=== PATIENT | male | born 1960 | race African-American/Black ===

== ENCOUNTER 2021-07-08 13:21 | Inpatient (IN) | payer MEDICARE, MEDICAID ==
[2021-07-08 15:24] LABS: #Eosinphils 0.5 thou/uL (0.0-0.7); #Lymphocytes 1.8 thou/uL (1.20-3.40); #Monocytes 1.1 thou/uL (0.11-0.59); #Neutrophils 7.2 thou/uL (1.40-6.50); %Basophils 0.4 % (0.0-1.0); %Eosinophils 4.3 % (0.0-10.0); %Lymphocytes 17.1 % (21.0-51.0); %Monocytes 10.2 % (0.0-10.0); Mean Corpuscular HGB CONC 33.4 g/dL (32.0-36.0); Mean Corpuscular Hemoglobin 31.7 pg (27.0-31.0); Mean Corpuscular Volume 94.9 fL (78.0-98.0); Mean Platelet Volume 7.6 fL (7.4-10.4); Platelet Count 242 thou/uL (130-400); RBC Distribution Width 14.2 % (11.5-14.5); White Blood Cell (WBC) Count 10.5 thou/uL (4.8-10.8)
[2021-07-08 15:46] LABS: ALT (SGPT) 9 U/L (8-55); AST (SGOT) 13 U/L (5-34); Albumin 3.1 g/dL (3.5-5.0); Alkaline Phosphatase 62 U/L (40-110); Anion Gap 12 mmol/L (10-20); BUN (Urea Nitrogen) 11 mg/dL (8.4-25.7); Bilirubin, Total 0.4 mg/dL (0.2-1.2); Calc. Creatinine Clearance 0 mL/min (70-130); Calcium 8.9 mg/dL (7.8-10.44); Carbon Dioxide 27 mmol/L (22-29); Chloride 104 mmol/L (98-107); Globulin 3.4 g/dL (2.4-3.5); Potassium 4.2 mmol/L (3.5-5.1); Protein, Total 6.5 g/dL (6.0-8.3); Sodium 139 mmol/L (136-145)
[2021-07-08 15:51] LABS: Glucose 53 mg/dL (70-105)
[2021-07-08] MEDS ORDERED: Cefepime 2 GM VIAL ONE (16:06)
[2021-07-08] MEDS ORDERED: Vancomycin 1 GM/200 ML BAG ONE (16:52)
[2021-07-08] MEDS ORDERED: Acetaminophen 650 MG Suppository PR PRN (17:48)
[2021-07-08] MEDS ORDERED: Ondansetron PF 4 MG/2 ML Vial IVP PRN (17:48)
[2021-07-08] MEDS ORDERED: Ondansetron ODT 4 MG TAB PO PRN (17:48)
[2021-07-08] MEDS ORDERED: Acetaminophen 325 MG TAB PO PRN (17:48)
[2021-07-08] MEDS ORDERED: metroNIDAZOLE 500 MG in Premix Bag 1 BAG IVPB SCH (18:00)
[2021-07-08] MEDS ORDERED: Vancomycin 1 GM in Premix Bag 1 BAG IVPB SCH ×2 (18:00→18:30)
[2021-07-08] MEDS ORDERED: Piperacillin/Tazobactam 3.375 GM in Sodium Chloride 0.9% 100 ML IVPB SCH ×2 (18:15→22:00)
[2021-07-08 18:16] VITALS: BMI 27.8
[2021-07-08 18:37] LABS: SARS-CoV-2 NAA Rapid Test Not Detected (NotDetected)
[2021-07-08] MEDS ORDERED: Cefepime 2 GM in Sodium Chloride 0.9% 100 ML IVPB SCH (21:00)
[2021-07-08] MEDS: VANCOMYCIN 2 GRAM/400 ML BAG 2 GM in Premix Bag 1 BAG IVPB SCH (21:49)
[2021-07-08] MEDS: Atorvastatin Calcium 40 MG TAB PO SCH (21:59)
[2021-07-08] MEDS: Carvedilol 6.25 MG TAB PO SCH (21:59)
[2021-07-09] MEDS: VANCOMYCIN 2 GRAM/400 ML BAG 2 GM in Premix Bag 1 BAG IVPB SCH ×2 (05:16→18:10)
[2021-07-09 07:53] LABS: #Eosinphils 0.4 thou/uL (0.0-0.7); #Lymphocytes 1.6 thou/uL (1.20-3.40); #Neutrophils 6.1 thou/uL (1.40-6.50); %Basophils 0.4 % (0.0-1.0); %Eosinophils 4.6 % (0.0-10.0); %Lymphocytes 17.6 % (21.0-51.0); %Monocytes 10.4 % (0.0-10.0); %Neutrophils 66.9 % (42.0-75.0); Mean Corpuscular Volume 93.9 fL (78.0-98.0); Platelet Count 242 thou/uL (130-400); RBC Distribution Width 14.2 % (11.5-14.5); Red Blood Cell (RBC) Count 4.19 mill/uL (4.70-6.10); White Blood Cell (WBC) Count 9.1 thou/uL (4.8-10.8)
[2021-07-09 08:03] LABS: Anion Gap 12 mmol/L (10-20); BUN (Urea Nitrogen) 11 mg/dL (8.4-25.7); Calc. Creatinine Clearance 129 mL/min (70-130); Calcium 8.7 mg/dL (7.8-10.44); Carbon Dioxide 23 mmol/L (22-29); Chloride 106 mmol/L (98-107); Glucose 131 mg/dL (70-105); Potassium 3.9 mmol/L (3.5-5.1); Sodium 137 mmol/L (136-145)
[2021-07-09] MEDS: Piperacillin/Tazobactam 3.375 GM in Sodium Chloride 0.9% 100 ML IVPB SCH ×3 (08:25→23:09)
[2021-07-09] MEDS: Citalopram 20 MG TAB PO SCH (08:33)
[2021-07-09] MEDS: Carvedilol 6.25 MG TAB PO SCH ×2 (08:34→20:35)
[2021-07-09] MEDS: Aspirin 81 mg Enteric Coated Tablet PO SCH (08:34)
[2021-07-09] MEDS ORDERED: Fentanyl 100 MCG/2 ML VIAL ONE (15:17)
[2021-07-09] MEDS ORDERED: Ketamine 50 MG/ML (10ML VIAL) ONE (15:43)
[2021-07-09] MEDS ORDERED: Bupivacaine PF 0.5% 30 ML VIAL ONE (15:43)
[2021-07-09] MEDS ORDERED: Midazolam HCl 2 mg/2 ml Vial ONE (15:44)
[2021-07-09] MEDS ORDERED: Glycopyrrolate 0.2 MG/ML 5 ML SYRINGE ONE (16:34)
[2021-07-09] MEDS ORDERED: Promethazine HCl 25 MG/ML VIAL IVPB PRN (17:11)
[2021-07-09] MEDS ORDERED: Promethazine HCl 25 MG/ML VIAL IM PRN (17:11)
[2021-07-09] MEDS ORDERED: Ondansetron HCl/PF 4 MG/2 ML Vial IVP PRN (17:11)
[2021-07-09] MEDS ORDERED: Acetaminophen 500 MG TAB PO PRN (17:43)
[2021-07-09] MEDS ORDERED: Acetaminophen 500 MG TAB PO SCH (17:45)
[2021-07-09] MEDS ORDERED: Albuterol Sulfate 1.25 MG/3 ML NEB NEB PRN (17:47)
[2021-07-09] MEDS: Atorvastatin Calcium 40 MG TAB PO SCH (20:35)
[2021-07-09] MEDS: traMADol HCl 50 MG TAB PO PRN (20:36)
[2021-07-10] MEDS: traMADol HCl 50 MG TAB PO PRN ×2 (02:39→10:36)
[2021-07-10] MEDS: VANCOMYCIN 2 GRAM/400 ML BAG 2 GM in Premix Bag 1 BAG IVPB SCH ×2 (05:09→06:38)
[2021-07-10 06:12] LABS: #Eosinphils 0.3 thou/uL (0.0-0.7); #Lymphocytes 1.3 thou/uL (1.20-3.40); #Monocytes 0.7 thou/uL (0.11-0.59); #Neutrophils 6.5 thou/uL (1.40-6.50); %Basophils 0.5 % (0.0-1.0); %Eosinophils 3.4 % (0.0-10.0); %Lymphocytes 14.6 % (21.0-51.0); %Neutrophils 73.6 % (42.0-75.0); Hemoglobin 12.4 g/dL (14.0-18.0); Mean Corpuscular HGB CONC 32.7 g/dL (32.0-36.0); Mean Corpuscular Hemoglobin 30.8 pg (27.0-31.0); Mean Platelet Volume 7.6 fL (7.4-10.4); Platelet Count 241 thou/uL (130-400); RBC Distribution Width 14.1 % (11.5-14.5); Red Blood Cell (RBC) Count 4.02 mill/uL (4.70-6.10); White Blood Cell (WBC) Count 8.9 thou/uL (4.8-10.8)
[2021-07-10 06:19] LABS: Hemoglobin A1c 6.5 % (4.0-6.0)
[2021-07-10 06:30] LABS: Vancomycin, Trough 17.3 ug/mL
[2021-07-10 06:31] LABS: Anion Gap 12 mmol/L (10-20); BUN (Urea Nitrogen) 9 mg/dL (8.4-25.7); Calc. Creatinine Clearance 174 mL/min (70-130); Calcium 8.7 mg/dL (7.8-10.44); Carbon Dioxide 21 mmol/L (22-29); Chloride 106 mmol/L (98-107); Glucose 150 mg/dL (70-105); Potassium 3.9 mmol/L (3.5-5.1); Sodium 135 mmol/L (136-145)
[2021-07-10] MEDS ORDERED: glipiZIDE 10 MG TAB PO SCH (07:30)
[2021-07-10] MEDS: Aspirin 81 mg Enteric Coated Tablet PO SCH (08:47)
[2021-07-10] MEDS: Carvedilol 6.25 MG TAB PO SCH (08:47)
[2021-07-10] MEDS: Citalopram 20 MG TAB PO SCH (08:48)
[2021-07-10] MEDS: Piperacillin/Tazobactam 3.375 GM in Sodium Chloride 0.9% 100 ML IVPB SCH ×2 (08:48→16:00)
[2021-07-10] MEDS ORDERED: Amlodipine 10 MG TAB PO SCH (09:00)
[2021-07-10] MEDS ORDERED: Clopidogrel Bisulfate 75 MG TAB PO SCH (09:00)
[2021-07-10] MEDS ORDERED: Polyethylene Glycol 3350 17 GM Packet PO SCH (09:00)
[2021-07-10 16:54] VITALS: BP 108/70; TEMP 98
== END 2021-07-10 17:01 | disposition home health service (06) | DRG 617 ==
LOC: ERS 13:21 → ERHOLD 16:56 → T4-A 21:00
PROVIDERS: ADMIT Internal Medicine; ATTEND Internal Medicine
PROC: 0Y6M0Z9 Detachment at Right Foot, Partial 1st Ray, Open Approach (ICD-10-PCS; principal; 2021-07-09)
PROC: 0Y6M0ZB Detachment at Right Foot, Partial 2nd Ray, Open Approach (ICD-10-PCS; 2021-07-09)
DX: E11.69 Type 2 diabetes mellitus with other specified complication (principal); E11.52 Type 2 diabetes mellitus with diabetic peripheral angiopathy with gangrene; M86.8X7 Other osteomyelitis, ankle and foot; I50.22 Chronic systolic (congestive) heart failure; Z20.822 Contact with and (suspected) exposure to COVID-19; I25.10 Atherosclerotic heart disease of native coronary artery without angina pectoris; I11.0 Hypertensive heart disease with heart failure; E78.5 Hyperlipidemia, unspecified; I10 Essential (primary) hypertension; F12.10 Cannabis abuse, uncomplicated; F17.210 Nicotine dependence, cigarettes, uncomplicated; E11.621 Type 2 diabetes mellitus with foot ulcer; L97.519 Non-pressure chronic ulcer of other part of right foot with unspecified severity; I25.5 Ischemic cardiomyopathy; F10.10 Alcohol abuse, uncomplicated; Z79.899 Other long term (current) drug therapy; Z95.1 Presence of aortocoronary bypass graft; I25.2 Old myocardial infarction; Z79.82 Long term (current) use of aspirin; Z79.02 Long term (current) use of antithrombotics/antiplatelets; Z79.4 Long term (current) use of insulin; Z71.6 Tobacco abuse counseling; Z95.5 Presence of coronary angioplasty implant and graft; Z95.810 Presence of automatic (implantable) cardiac defibrillator; Z91.040 Latex allergy status; Z82.49 Family history of ischemic heart disease and other diseases of the circulatory system
CPT/HCPCS: 36415; 36416; 80048; 80053; 80202; 83036; 85025; 85652; 86140; 87040; 87070; 87077; 87205; 88305; 88311; 96365; 96366; 96367; C1713; J0692; J2250; J2543; J3010; J3370; J3490; Q0162; S0020; U0002

== ENCOUNTER 2021-08-04 09:09 | Emergency (ER) | payer MEDICARE, MEDICAID | END 2021-08-04 11:54 | disposition left against medical advice (07) | LOC: ERS 09:09 | DX: Z53.21 Procedure and treatment not carried out due to patient leaving prior to being seen by health care provider (principal) ==

== ENCOUNTER 2021-08-12 12:17 | Outpatient (CLI) | payer MEDICARE, MEDICAID ==
[2021-08-12 13:14] LABS: #Eosinphils 0.1 10x3/uL (0.0-0.5); #Neutrophils 7.5 10x3/uL (1.5-8.4); %Basophils 0.3 % (0.0-2.0); %Eosinophils 0.8 % (0.0-6.0); %Lymphocytes 9.4 % (18.0-47.0); %Monocytes 10.8 % (0.0-10.0); %Neutrophils 78.5 % (40.0-75.0); Hemoglobin 10.9 g/dL (13.5-17.5); Mean Corpuscular HGB CONC 32.2 g/dL (32.0-36.0); Mean Corpuscular Hemoglobin 28.7 pg (27.0-33.0); Mean Corpuscular Volume 88.9 fl (81.2-95.1); Mean Platelet Volume 10.9 fl (7.4-10.4); Platelet Count 241 10x3/uL (150-450); RBC Distribution Width 15.1 % (11.5-14.5); White Blood Cell (WBC) Count 9.6 10x3/uL (3.5-10.5)
[2021-08-12 13:36] LABS: Anion Gap 15 mmol/L (10-20); BUN (Urea Nitrogen) 17 mg/dL (8.4-25.7); Calc. Creatinine Clearance 0 mL/min (70-130); Calcium 8.1 mg/dL (7.8-10.44); Carbon Dioxide 25 mmol/L (22-29); Chloride 99 mmol/L (98-107); Glucose 365 mg/dL (70-105); Potassium 4.2 mmol/L (3.5-5.1); Sodium 135 mmol/L (136-145)
[2021-08-13 14:36] LABS: SARS-CoV-2 PCR by NAA Not Detected (NotDetected)
== END 2021-08-12 12:18 | disposition home or self-care (01) ==
LOC: LABBT 12:17
PROVIDERS: ATTEND Specialist
DX: Z01.812 Encounter for preprocedural laboratory examination (principal); Z20.822 Contact with and (suspected) exposure to COVID-19
CPT/HCPCS: 80048; 85025; U0003; U0005

== ENCOUNTER 2021-08-14 08:36 | Inpatient (IN) | payer MEDICARE, MEDICAID ==
[2021-08-06 10:34] VITALS: BMI 26.1
[2021-08-14] MEDS ORDERED: ceFAZolin 2 GM/DEX 5% 100 ML BAG ONE (09:15)
[2021-08-14] MEDS ORDERED: Gabapentin 300 MG CAP ONE (09:15)
[2021-08-14] MEDS ORDERED: Acetaminophen 500 MG TAB ONE (09:15)
[2021-08-14] MEDS ORDERED: Ketorolac Tromethamine 30 MG/ML VIAL ONE (09:15)
[2021-08-14] MEDS ORDERED: Midazolam HCl 2 mg/2 ml Vial ONE (10:14)
[2021-08-14] MEDS ORDERED: HYDROmorphone 0.5 MG/0.5 ML SYRINGE ONE (10:14)
[2021-08-14] MEDS ORDERED: Fentanyl 100 MCG/2 ML VIAL ONE ×2 (10:14→12:31)
[2021-08-14] MEDS ORDERED: Lidocaine 1% PF 5 ML VIAL ONE (10:25)
[2021-08-14] MEDS ORDERED: ePHEDrine 50 MG/ML VIAL ONE (10:25)
[2021-08-14] MEDS ORDERED: Ondansetron PF 4 MG/2 ML Vial ONE (10:25)
[2021-08-14] MEDS ORDERED: PROPOFOL 200 MG/20 ML VIAL ONE (10:25)
[2021-08-14] MEDS ORDERED: Dexamethasone 20 MG/5 ML VIAL ONE (10:25)
[2021-08-14] MEDS ORDERED: hydrALAZINE 20 MG/ML VIAL SLOW IVP PRN (12:02)
[2021-08-14] MEDS ORDERED: HYDROcodone/Acetaminophen 10/325 mg Tablet PO PRN ×2 (12:02)
[2021-08-14] MEDS ORDERED: Morphine 4 MG/ML VIAL SLOW IVP PRN (12:02)
[2021-08-14] MEDS ORDERED: Dextrose 5% in Water 1,000 ML IV PRN (12:02)
[2021-08-14] MEDS ORDERED: Morphine 2 MG/ML VIAL SLOW IVP PRN (12:02)
[2021-08-14] MEDS ORDERED: Dextrose 50% Abboject 50 ML SYRINGE SLOW IVP PRN (12:02)
[2021-08-14] MEDS ORDERED: Loratadine 10 MG TAB PO PRN (12:13)
[2021-08-14] MEDS ORDERED: Albuterol Sulfate 1.25 MG/3 ML NEB NEB PRN (12:13)
[2021-08-14] MEDS ORDERED: fentaNYL Citrate/PF 2,000 MCG in Sodium Chloride 0.9% 60 ML IV PRN (13:55)
[2021-08-14] MEDS ORDERED: diphenhydrAMINE 50 MG/ML VIAL IVP PRN (13:55)
[2021-08-14] MEDS ORDERED: diphenhydrAMINE 25 MG CAP PO PRN (13:55)
[2021-08-14] MEDS ORDERED: Promethazine HCl 25 MG/ML VIAL IM PRN (13:55)
[2021-08-14] MEDS ORDERED: diphenhydrAMINE 50 MG/ML VIAL IM PRN (13:55)
[2021-08-14] MEDS ORDERED: Ondansetron PF 4 MG/2 ML Vial IVP PRN (13:55)
[2021-08-14] MEDS ORDERED: Naloxone HCl 0.4 mg/ml Vial IV PRN (13:55)
[2021-08-14] MEDS ORDERED: Zolpidem Tartrate 5 MG TAB PO PRN (13:55)
[2021-08-14] MEDS ORDERED: PCA Communication Order-Pharmacy FS SCH (14:00)
[2021-08-14] MEDS ORDERED: Furosemide 20 MG TAB PO SCH (15:00)
[2021-08-14] MEDS: Pregabalin 50 MG CAP PO SCH ×2 (16:59→21:48)
[2021-08-14] MEDS: Gabapentin 300 MG CAP PO SCH ×2 (17:00→21:51)
[2021-08-14] MEDS: HumaLOG 300 UNITS/3 ML VIAL SC PRN ×2 (18:18→21:53)
[2021-08-14] MEDS: Famotidine 20 MG TAB PO SCH (21:50)
[2021-08-14] MEDS: Amlodipine 10 MG TAB PO SCH (21:50)
[2021-08-14] MEDS: Enoxaparin Sodium 40 MG/0.4 ML SYRINGE SC SCH (21:51)
[2021-08-14] MEDS: Atorvastatin Calcium 40 MG TAB PO SCH (21:51)
[2021-08-14] MEDS: HumaLOG 300 UNITS/3 ML VIAL SC SCH (21:52)
[2021-08-14] MEDS: Lantus 1000 UNITS/10 ML VIAL SC SCH (21:52)
[2021-08-15] MEDS: HumaLOG 300 UNITS/3 ML VIAL SC PRN ×4 (04:13→22:46)
[2021-08-15 05:41] LABS: #Lymphocytes 0.9 thou/uL (1.20-3.40); #Monocytes 0.7 thou/uL (0.11-0.59); #Neutrophils 8.7 thou/uL (1.40-6.50); %Basophils 0.1 % (0.0-1.0); %Lymphocytes 8.9 % (21.0-51.0); %Monocytes 6.5 % (0.0-10.0); %Neutrophils 84.4 % (42.0-75.0); Hemoglobin 9.1 g/dL (14.0-18.0); Mean Corpuscular HGB CONC 34.5 g/dL (32.0-36.0); Mean Corpuscular Hemoglobin 31.1 pg (27.0-31.0); Mean Corpuscular Volume 90.3 fL (78.0-98.0); Mean Platelet Volume 8.2 fL (7.4-10.4); Platelet Count 191 thou/uL (130-400); RBC Distribution Width 14.5 % (11.5-14.5); Red Blood Cell (RBC) Count 2.92 mill/uL (4.70-6.10); White Blood Cell (WBC) Count 10.3 thou/uL (4.8-10.8)
[2021-08-15 05:56] LABS: Hemoglobin A1c 7.9 % (4.0-6.0)
[2021-08-15 06:04] LABS: Anion Gap 12 mmol/L (10-20); BUN (Urea Nitrogen) 26 mg/dL (8.4-25.7); Calc. Creatinine Clearance 98 mL/min (70-130); Calcium 8.2 mg/dL (7.8-10.44); Carbon Dioxide 25 mmol/L (22-29); Chloride 96 mmol/L (98-107); Glucose 458 mg/dL (70-105); Magnesium 1.8 mg/dL (1.6-2.6); Potassium 4.3 mmol/L (3.5-5.1); Sodium 129 mmol/L (136-145)
[2021-08-15] MEDS: Pregabalin 50 MG CAP PO SCH ×3 (08:15→22:43)
[2021-08-15] MEDS: Gabapentin 300 MG CAP PO SCH ×3 (08:15→22:44)
[2021-08-15] MEDS: Aspirin 81 mg Enteric Coated Tablet PO SCH (08:15)
[2021-08-15] MEDS: Famotidine 20 MG TAB PO SCH ×2 (08:15→22:43)
[2021-08-15] MEDS: HumaLOG 300 UNITS/3 ML VIAL SC SCH ×2 (08:18→22:46)
[2021-08-15] MEDS: Lantus 1000 UNITS/10 ML VIAL SC SCH ×2 (08:19→22:47)
[2021-08-15] MEDS ORDERED: glipiZIDE 10 MG TAB PO SCH (09:00)
[2021-08-15] MEDS ORDERED: FLU VACC QS2021-22(6MOS UP)/PF 60 MCG/0.5 ML SYRINGE IM ONE (09:00)
[2021-08-15] MEDS: HYDROcodone/Acetaminophen 10/325 mg Tablet PO PRN (19:51)
[2021-08-15] MEDS ORDERED: glipiZIDE 5 MG TAB PO SCH (21:00)
[2021-08-15] MEDS: Atorvastatin Calcium 40 MG TAB PO SCH (22:42)
[2021-08-15] MEDS: glipiZIDE 10 MG TAB PO SCH (22:43)
[2021-08-15] MEDS: Amlodipine 10 MG TAB PO SCH (22:45)
[2021-08-15] MEDS: Enoxaparin Sodium 40 MG/0.4 ML SYRINGE SC SCH (22:45)
[2021-08-16] MEDS: HYDROcodone/Acetaminophen 10/325 mg Tablet PO PRN ×2 (01:20→15:23)
[2021-08-16 01:35] LABS: Magnesium 1.8 mg/dL (1.6-2.6)
[2021-08-16] MEDS: HumaLOG 300 UNITS/3 ML VIAL SC PRN (06:38)
[2021-08-16 07:14] LABS: Phosphorus 3.1 mg/dL (2.3-4.7)
[2021-08-16 08:02] LABS: Hemoglobin 8.2 g/dL (14.0-18.0); Mean Corpuscular HGB CONC 32.5 g/dL (32.0-36.0); Mean Corpuscular Hemoglobin 29.8 pg (27.0-31.0); Mean Corpuscular Volume 91.7 fL (78.0-98.0); Mean Platelet Volume 8.2 fL (7.4-10.4); Platelet Count 203 thou/uL (130-400); RBC Distribution Width 14.6 % (11.5-14.5); Red Blood Cell (RBC) Count 2.74 mill/uL (4.70-6.10); White Blood Cell (WBC) Count 9.5 thou/uL (4.8-10.8)
[2021-08-16] MEDS: Pregabalin 50 MG CAP PO SCH ×3 (09:14→20:05)
[2021-08-16] MEDS: Famotidine 20 MG TAB PO SCH ×2 (09:16→20:02)
[2021-08-16] MEDS: Gabapentin 300 MG CAP PO SCH ×3 (09:16→20:03)
[2021-08-16] MEDS: Aspirin 81 mg Enteric Coated Tablet PO SCH (09:16)
[2021-08-16] MEDS: glipiZIDE 10 MG TAB PO SCH ×2 (09:16→20:04)
[2021-08-16] MEDS: Lantus 1000 UNITS/10 ML VIAL SC SCH ×2 (09:17→20:06)
[2021-08-16] MEDS: HumaLOG 300 UNITS/3 ML VIAL SC SCH ×2 (09:21→20:05)
[2021-08-16 10:39] LABS: Anisocytosis SLIGHT = 6-15 cells (100X) (0-5/hpf); Band 4 % (5-11); Burr Cells SLIGHT = 2-5 cells (100X) (0-1/hpf); Eosinophils 2 % (0-10); Hypochromia SLIGHT = 6-15 cells (100X) (0-5/hpf); Lymphocytes 10 % (21-51); MDiff Complete? YES; Monocytes 6 % (0-10); Neutrophil 78 % (42-75); Platelet Morphology Comment Appears Adequate
[2021-08-16] MEDS: Amlodipine 10 MG TAB PO SCH (20:02)
[2021-08-16] MEDS: Atorvastatin Calcium 40 MG TAB PO SCH (20:03)
[2021-08-16] MEDS: Enoxaparin Sodium 40 MG/0.4 ML SYRINGE SC SCH (20:04)
[2021-08-17] MEDS: HYDROcodone/Acetaminophen 10/325 mg Tablet PO PRN ×3 (03:45→16:19)
[2021-08-17 05:37] LABS: Anion Gap 11 mmol/L (10-20); BUN (Urea Nitrogen) 11 mg/dL (8.4-25.7); Calc. Creatinine Clearance 165 mL/min (70-130); Calcium 8.1 mg/dL (7.8-10.44); Carbon Dioxide 28 mmol/L (22-29); Chloride 102 mmol/L (98-107); Glucose 119 mg/dL (70-105); Potassium 4.1 mmol/L (3.5-5.1); Sodium 137 mmol/L (136-145)
[2021-08-17 05:46] LABS: #Eosinphils 0.1 thou/uL (0.0-0.7); #Lymphocytes 2.6 thou/uL (1.20-3.40); #Monocytes 0.8 thou/uL (0.11-0.59); #Neutrophils 4.4 thou/uL (1.40-6.50); Band 1 % (5-11); Hemoglobin 8.6 g/dL (14.0-18.0); Lymphocytes 40 % (21-51); MDiff Complete? YES; Mean Corpuscular HGB CONC 33.8 g/dL (32.0-36.0); Mean Corpuscular Hemoglobin 30.9 pg (27.0-31.0); Mean Corpuscular Volume 91.3 fL (78.0-98.0); Mean Platelet Volume 8.5 fL (7.4-10.4); Monocytes 3 % (0-10); Neutrophil 55 % (42-75); Platelet Count 225 thou/uL (130-400); RBC Distribution Width 14.6 % (11.5-14.5); Red Blood Cell (RBC) Count 2.78 mill/uL (4.70-6.10); White Blood Cell (WBC) Count 7.8 thou/uL (4.8-10.8)
[2021-08-17 05:47] LABS: Eosinophils 1 % (0-10); Hypochromia SLIGHT = 6-15 cells (100X) (0-5/hpf); Platelet Morphology Comment Appears Adequate
[2021-08-17 08:05] VITALS: TEMP 98.3
[2021-08-17] MEDS: Pregabalin 50 MG CAP PO SCH ×2 (08:58→16:12)
[2021-08-17] MEDS: Aspirin 81 mg Enteric Coated Tablet PO SCH (08:58)
[2021-08-17] MEDS: glipiZIDE 10 MG TAB PO SCH (08:59)
[2021-08-17] MEDS: Gabapentin 300 MG CAP PO SCH ×2 (08:59→16:12)
[2021-08-17] MEDS: Famotidine 20 MG TAB PO SCH (08:59)
[2021-08-17] MEDS: HumaLOG 300 UNITS/3 ML VIAL SC SCH (09:01)
[2021-08-17] MEDS: Lantus 1000 UNITS/10 ML VIAL SC SCH (09:01)
[2021-08-17 16:26] VITALS: BP 106/68
== END 2021-08-17 18:35 | disposition home health service (06) | DRG 240 ==
LOC: SDC 08:36 → SURG A 12:02
PROVIDERS: ADMIT Specialist; ATTEND Specialist
PROC: 0Y6H0Z1 Detachment at Right Lower Leg, High, Open Approach (ICD-10-PCS; principal; 2021-08-14)
DX: E11.52 Type 2 diabetes mellitus with diabetic peripheral angiopathy with gangrene (principal); I70.269 Atherosclerosis of native arteries of extremities with gangrene, unspecified extremity; I50.22 Chronic systolic (congestive) heart failure; I25.810 Atherosclerosis of coronary artery bypass graft(s) without angina pectoris; J44.0 Chronic obstructive pulmonary disease with (acute) lower respiratory infection; I42.9 Cardiomyopathy, unspecified; I25.10 Atherosclerotic heart disease of native coronary artery without angina pectoris; I10 Essential (primary) hypertension; I25.5 Ischemic cardiomyopathy; E78.2 Mixed hyperlipidemia; E11.65 Type 2 diabetes mellitus with hyperglycemia; I11.0 Hypertensive heart disease with heart failure; E11.40 Type 2 diabetes mellitus with diabetic neuropathy, unspecified; Z91.040 Latex allergy status; Z88.8 Allergy status to other drugs, medicaments and biological substances; Z79.82 Long term (current) use of aspirin; Z79.4 Long term (current) use of insulin; Z95.1 Presence of aortocoronary bypass graft; Z79.899 Other long term (current) drug therapy; Z79.02 Long term (current) use of antithrombotics/antiplatelets; Z95.810 Presence of automatic (implantable) cardiac defibrillator; Z01.812 Encounter for preprocedural laboratory examination; Z20.822 Contact with and (suspected) exposure to COVID-19
CPT/HCPCS: 36415; 36416; 80048; 83036; 83735; 84100; 85025; 88307; 88311; J1100; J1170; J1650; J1815; J1885; J2250; J2405; J2704; J3010; J3490; U0003; U0005